=== PATIENT | female | born 2000 | race Caucasian/White ===

== ENCOUNTER 2021-06-19 21:07 | Emergency (ER) | payer OTHER ==
[~2021-06-19 21:07] MED LIST: COLACE 100MG C100 MG PO; IBUPROFEN600 MG PO; LABETALOL HCL100 MG PO; LABETALOL HCL300 MG PO; LORTAB 5-325 M1 EACH PO; PRENATAL VITAM1 EAC5 PO
[2021-06-20 00:07] LABS: HEMOGLOBIN 12.9 gm/dl (12.3-15.3); RED BLOOD COUNT 4.26 M/UL (4.00-5.10); WHITE BLOOD COUNT 10.1 K/UL (4.5-11.0)
[2021-06-20 00:18] LABS: BUN/CREATININE RATIO 9 (0-10)
[2021-06-20] MEDS ORDERED: REGLAN10 MG PO (02:11)
[2021-06-20] MEDS ORDERED: BENADRYL 50MG C50 MG PO (02:11)
== END 2021-06-20 02:27 | disposition home or self-care (01) ==
LOC: ER1 21:07
PROVIDERS: Physician Assistant
DX: O13.2 Gestational [pregnancy-induced] hypertension without significant proteinuria, second trimester (principal); G43.909 Migraine, unspecified, not intractable, without status migrainosus; E87.6 Hypokalemia; Z20.822 Contact with and (suspected) exposure to COVID-19; Z3A.17 17 weeks gestation of pregnancy
CPT/HCPCS: 0240U; 80053; 81001; 85025; 87086; 96374; 96375; 99283; J1200; J2765

== ENCOUNTER 2021-11-12 18:33 | Inpatient (IN) | payer OTHER ==
[~2021-11-12] VITALS: Ht 154.9 cm; Wt 81.6 kg
[~2021-11-12 18:33] MED LIST changes: +BENADRYL 50MG C50 MG PO; +REGLAN10 MG PO
[2021-11-12 20:17] LABS: RED BLOOD COUNT 3.93 M/UL (4.00-5.10)
[2021-11-12 20:34] LABS: BUN/CREATININE RATIO 14 (0-10)
[2021-11-13] MEDS ORDERED: LABETALOL HCL100 MG PO (05:38)
[2021-11-13] MEDS ORDERED: IBUPROFEN600 MG PO (12:22)
[2021-11-13] MEDS ORDERED: COLACE100 MG PO (12:22)
== END 2021-11-14 16:00 | disposition home or self-care (01) | DRG 807 ==
LOC: GENOP 18:33 → OB 19:26
PROVIDERS: Obstetrics & Gynecology; ADMIT Obstetrics & Gynecology
PROC: 4A1HXCZ Monitoring of Products of Conception, Cardiac Rate, External Approach (ICD-10-PCS; 2021-11-12)
PROC: 10H073Z Insertion of Monitoring Electrode into Products of Conception, Via Natural or Artificial Opening (ICD-10-PCS; 2021-11-12)
PROC: 10H07YZ Insertion of Other Device into Products of Conception, Via Natural or Artificial Opening (ICD-10-PCS; 2021-11-12)
PROC: 10E0XZZ Delivery of Products of Conception, External Approach (ICD-10-PCS; principal; 2021-11-13)
PROC: 10907ZC Drainage of Amniotic Fluid, Therapeutic from Products of Conception, Via Natural or Artificial Opening (ICD-10-PCS; 2021-11-13)
PROC: 0HQ9XZZ Repair Perineum Skin, External Approach (ICD-10-PCS; 2021-11-13)
DX: O13.4 Gestational [pregnancy-induced] hypertension without significant proteinuria, complicating childbirth (principal); Z37.0 Single live birth; Z3A.38 38 weeks gestation of pregnancy; Z20.822 Contact with and (suspected) exposure to COVID-19; O24.420 Gestational diabetes mellitus in childbirth, diet controlled; O99.334 Smoking (tobacco) complicating childbirth; F17.210 Nicotine dependence, cigarettes, uncomplicated; Z90.49 Acquired absence of other specified parts of digestive tract
CPT/HCPCS: 36415; 80053; 80307; 81001; 82570; 82962; 84156; 84550; 85014; 85018; 85025; J2590